=== PATIENT | female | born 1950 | race Caucasian/White ===

== ENCOUNTER → 2017-10-01 | Outpatient (REF) | payer OTHER ==
[2014-11-30 07:42] VITALS: BMI 21.1
[~2017-10-01] MED LIST: ATOR20TA65 PO; CALC-497 PO; CHOL10005 PO; LEVO75TA73 PO; LISI-353 PO; METF-420 PO; MULT1CAP41 PO; OMEP-137 PO; OXYC-717 PO; POTA25TA28 PO; PRE1 PO; PRILOSEC; PROM12.546 PO; SYNTHROID; TRICOR; VITAMIN C; [UNRECOGNIZED DRUG - CODE] PO; [UNRECOGNIZED DRUG - CODE] PO
== END ==
LOC: ZZSTITCHES 16:09
PROVIDERS: ATTEND Physician Assistant
DX: L03.312 Cellulitis of back [any part except buttock and flank] (principal)
CPT/HCPCS: 87070

== ENCOUNTER → 2017-10-03 | Outpatient (CLI) | payer OTHER ==
[2014-11-30 07:42] VITALS: BMI 21.1
--- NOTE | 2017-10-03 11:07 | RADIOLOGY IMAGING REPORT ---
[place] [facility] [place] NAME: ANAMARIA ALFARO : [id number] MR: [id number] V: [id number] EXAM DATE: ORDERING PHYSICIAN: JEVON MENDOZA TECHNOLOGIST: Sasha Flores PROCEDURE:BILATERAL DIGITAL SCREENING MAMMOGRAM WITH CAD ASSISTED INTERPRETATION & 3D TOMOSYNTHESIS COMPARISON:Prior mammograms 09/30/16 & 09/30/15 INDICATIONS:SCREENING FINDINGS: The breast tissue is primarily fatty replaced. Scattered asymmetries are stable but there is no dominant mass or suspicious microcalcifications in either breast. DIAGNOSTIC CATEGORY 1--NEGATIVE. RECOMMENDATIONS: ROUTINE MAMMOGRAM AND CLINICAL EVALUATION. IMPRESSION: BIRADS 1: Negative Recommend the patient resumes screening mammography in 1 year. Dictated by: Kashif Hall M.D. on 10/03/2017 at 9:09 Transcribed by: MIKE on 10/03/2017 at 10:40 Approved by: Kashif Hall M.D. on 10/03/2017 at 11:05 [facility]
== END ==
LOC: MAMO 02:40
PROVIDERS: ATTEND Family Medicine
DX: Z12.31 Encounter for screening mammogram for malignant neoplasm of breast (principal)
CPT/HCPCS: 77063; 77067

== ENCOUNTER → 2018-10-16 | Outpatient (CLI) | payer MEDICARE ==
[2014-11-30 07:42] VITALS: BMI 21.1
[~2018-10-16] MED LIST changes: -METF-420 PO; +METF-452 PO
--- NOTE | 2018-10-17 08:22 | RADIOLOGY IMAGING REPORT ---
FACILITY: [facility] - [place] PATIENT NAME: ANAMARIA ALFARO : [id number] MR: [id number] V: [id number] EXAM DATE: ORDERING PHYSICIAN: JEVON MENDOZA TECHNOLOGIST: Gabriela Menard PROCEDURE:BILATERAL DIGITAL SCREENING MAMMOGRAM WITH CAD ASSISTED INTERPRETATION & 3D TOMOSYNTHESIS COMPARISON:Prior mammograms 10/03/17, 09/30/16, 09/30/15, 09/17/14, 09/02/13, 08/28/12. INDICATIONS:SCREENING FINDINGS: There are scattered areas of fibroglandular density throughout the breasts. The parenchymal pattern has remained stable allowing for difference in mammographic technique & patient positioning. DIAGNOSTIC CATEGORY 1--NEGATIVE. RECOMMENDATIONS: ROUTINE MAMMOGRAM AND CLINICAL EVALUATION. IMPRESSION: BIRADS 1: Negative. No significant abnormality is seen. Dictated by: Vandana Balderas M.D. on 10/16/2018 at 14:58 Transcribed by: MIKE on 10/16/2018 at 15:01 Approved by: Vandana Balderas M.D. on 10/17/2018 at 8:21 [facility]
== END ==
LOC: MAMO 01:36
PROVIDERS: ATTEND Family Medicine
DX: Z12.31 Encounter for screening mammogram for malignant neoplasm of breast (principal)
CPT/HCPCS: 77063; 77067

== ENCOUNTER → 2018-12-07 | Outpatient (REF) | payer MEDICARE ==
[2014-11-30 07:42] VITALS: BMI 21.1
[2018-12-07 10:28] LABS: PLATELET COUNT, AUTOMATED 367 K/uL (150-450)
== END ==
PROVIDERS: ATTEND Nurse Practitioner Family
DX: R07.9 Chest pain, unspecified (principal)
CPT/HCPCS: 82040; 82247; 82310; 82374; 82435; 82565; 82947; 84075; 84132; 84155; 84295; 84450; 84460; 84484; 84520; 85025